=== PATIENT | male | born 1980 | race Caucasian/White ===

== ENCOUNTER → 2016-08-22 | Outpatient (CLI) | payer OTHER ==
[~2016-08-22] MED LIST: PANT40TA PO
[2016-08-26 12:35] LABS: CALC TOTAL (E+NE) 27 mcg/24 h (26-121); NOREPINEPHRINE UR 27 mcg/24 h (15-100)
[2016-08-27 19:35] LABS: 5-HIAA 2.9 mg/24 h (<=6.0)
== END | disposition home or self-care (01) ==
LOC: C.LAB1850 16:14
PROVIDERS: ATTEND Internal Medicine Cardiovascular Disease
DX: I47.1 Supraventricular tachycardia (principal)

== ENCOUNTER → 2016-09-01 | Outpatient (CLI) | payer OTHER ==
--- NOTE | 2016-09-01 19:25 | DIAGNOSTIC IMAGING REPORT ---
RIGHT TOE(S) MIN 2 VIEWS CLINICAL HISTORY: Right toe pain. COMPARISON: None FINDINGS: Alignment of the right great toe is anatomic. No fracture or suspicious lesion is present. There is moderate osteophytosis of the interphalangeal joint. There is mild arthritis of the right first metatarsophalangeal joint. IMPRESSION: 1. No acute fracture or dislocation of the right great toe. 2. Apparent mild to moderate osteophytosis along the plantar aspect of the interphalangeal joint of the right great toe. Mild arthritis of the right first metatarsophalangeal joint. Electronically signed by: Tej Henao M.D. 09/01/2016 7:23 PM Dictated Date/Time: 09/01/2016 7:22 PM
== END ==
LOC: C.RAD 18:30
PROVIDERS: ATTEND Family Medicine
DX: E03.9 Hypothyroidism, unspecified (principal); M79.676 Pain in unspecified toe(s)

== ENCOUNTER → 2016-09-23 | Outpatient (CLI) | payer OTHER ==
--- NOTE | 2016-09-23 19:32 | DIAGNOSTIC IMAGING REPORT ---
PELVIS 1 OR 2 VIEW ROUTINE CLINICAL HISTORY: Pelvic pain COMPARISON STUDY: No previous studies for comparison. FINDINGS: No fractures are visualized. No destructive lesions are evident. Very early degenerative changes involving the hips are suspected. There are minor SI joint degenerative changes on the right. IMPRESSION: No fractures identified. Electronically signed by: Levi Uriostegui M.D. 09/23/2016 7:31 PM Dictated Date/Time: 09/23/2016 7:30 PM
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
== END | disposition home or self-care (01) ==
LOC: C.RAD 18:42
DX: M54.5 Low back pain (principal); Q79.6 Ehlers-Danlos syndromes; M41.9 Scoliosis, unspecified

== ENCOUNTER → 2016-10-20 | Outpatient (CLI) | payer OTHER ==
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
== END | disposition home or self-care (01) ==
LOC: C.RAD 16:52
DX: Q79.6 Ehlers-Danlos syndromes (principal); M54.2 Cervicalgia; M54.6 Pain in thoracic spine; R07.81 Pleurodynia; Z87.828 Personal history of other (healed) physical injury and trauma